=== PATIENT | female | born 1945 | race Caucasian/White ===

== ENCOUNTER 2017-12-29 16:33 | Inpatient (IN) | payer MEDICARE ==
[~2017-12-29] VITALS: Ht 170.2 cm; Wt 88.5 kg
--- NOTE | 2017-12-29 16:33 | NUR ---
SENT FROM URGENT CARE FOR ABNORMAL EKG. WEAKNESS X3 DAYS. VITAL SIGNS WNL A/OX4. WILL CONTINUE TO MONITOR FOR ANY CHANGES.
[2017-12-29] MEDS ORDERED: ASPIRIN 81 MG TAB.CHEW ONE (16:46)
--- NOTE | 2017-12-29 16:55 | NUR ---
NEW IV STARTED ON LAC, 20G. BLOOD DRAWN AND SENT TO LAB
[2017-12-29] MEDS ORDERED: ASPIRIN 81 MG TAB.CHEW PO ONE (17:00)
[2017-12-29 17:07] LABS: CALCIUM, SERUM 8.8 mg/dL (8.5-10.1); CARBON DIOXIDE 25 mmol/L (21-32); CHLORIDE 103 mmol/L (98-107); CREATININE 1.2 mg/dL (0.6-1.3); GLUCOSE 113 mg/dL (74-106); POTASSIUM 4.3 mmol/L (3.5-5.1); SODIUM SERUM 140 mmol/L (136-145); UREA NITROGEN, BLOOD 26 mg/dL (7-18)
[2017-12-29 17:11] LABS: BASOPHILS % (AUTO) 0.4 % (0.0-2.0); EOSINOPHILS % (AUTO) 0.6 % (0.0-6.0); HEMATOCRIT 26 % (33-45); HEMOGLOBIN 8.1 g/dL (11.5-14.8); LYMPHOCYTES # (AUTO) 1.3 /CMM (0.8-4.8); LYMPHOCYTES % (AUTO) 13.5 % (20.0-44.0); MEAN CORPUSCULAR HGB CONC 32 g/dl (31.0-36.0); MEAN CORPUSCULAR VOLUME 60 fL (82-100); MONOCYTES # (AUTO) 0.7 /CMM (0.1-1.30); MONOCYTES % (AUTO) 7.1 % (2.0-12.0); NEUTROPHILS # (AUTO) 7.6 /CMM (1.8-8.9); NEUTROPHILS % (AUTO) 78.4 % (43.0-81.0); PLATELET COUNT (AUTO) 419 /CMM (150-450); RDW COEFFICIENT OF VARIATION 18.4 (11.5-15.0); WHITE BLOOD COUNT (AUTO) 9.7 K/uL (4.3-11.0)
[2017-12-29 17:15] LABS: TROPONIN I < 0.017 ng/mL (0.00-0.056)
[2017-12-29 17:24] LABS: ALANINE AMINOTRANSFERASE 20 U/L (12-78); ALBUMIN 3.5 g/dL (3.4-5.0); ALKALINE PHOSPHATASE 81 U/L (46-116); ASPARTATE AMINOTRANSFERASE 16 U/L (15-37); B-TYPE NATRIURETIC PEPTIDE 226 PG/ML (0-125); BILIRUBIN,DIRECT 0.1 mg/dL (0.0-0.2); BILIRUBIN,TOTAL 0.4 mg/dL (0.2-1.0); TOTAL PROTEIN, SERUM 7.7 g/dL (6.4-8.2)
[2017-12-29 17:30] LABS: INR 0.95 (0.87-1.13)
[2017-12-29] MEDS ORDERED: SUMA25TA10 PO (17:59)
[2017-12-29] MEDS ORDERED: TRAM50TA2 PO (17:59)
[2017-12-29] MEDS ORDERED: MELO-105 PO (17:59)
[2017-12-29] MEDS ORDERED: GABA-532 PO (17:59)
--- NOTE | 2017-12-29 19:40 | NUR ---
REPORT GIVEN TO GENARO
--- NOTE | 2017-12-29 19:43 | NUR ---
SON: DENISSE YANG [phone]
[2017-12-29 20:00] VITALS: BP_SYST 121; BP_SYST 123; BP_SYST 149; BP_DIAS 73; BP_DIAS 81; BP_DIAS 87
--- NOTE | 2017-12-29 20:00 | NUR ---
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
[2017-12-29] MEDS ORDERED: ONDANSETRON HCL/PF 4 MG/2 ML VIAL IVP PRN (21:00)
[2017-12-29] MEDS ORDERED: Z GUARD REMEDY 2 OZ OINT TP PRN (21:00)
[2017-12-29] MEDS ORDERED: MORPHINE SULFATE INJ 4 MG/ML DISP.SYRIN IV PRN (21:00)
[2017-12-29] MEDS ORDERED: SUMATRIPTAN SUCCINATE 25 MG TABLET PO PRN (21:00)
[2017-12-29] MEDS ORDERED: ACETAMINOPHEN 325 MG TABLET PO PRN (21:00)
[2017-12-29] MEDS ORDERED: TRAMADOL HCL 50 MG TABLET PO PRN (21:00)
[2017-12-29] MEDS ORDERED: ENOXAPARIN SODIUM 40 MG/0.4 ML DISP.SYRIN SQ SCH (22:00)
--- NOTE | 2017-12-29 22:00 | NUR ---
OFFC SPEC NOTES STARTED ON LOVENOX 4OMG SQ ORDERED,GIVEN ON RLQ.
[2017-12-30] VITALS (14 sets, daily range): BP systolic 130–162; BP diastolic 53–75
[2017-12-30] MEDS: ZOLPIDEM TARTRATE 5 MG TABLET PO PRN ×2 (00:15→22:54)
--- NOTE | 2017-12-30 00:15 | NUR ---
MS RN NOTES C/O INSOMNIA,AMBIEN 5MG PO GIVEN NEW ORDER BY SEBAS TSANG,AND PER PATIENT REQUEST.
--- NOTE | 2017-12-30 00:16 | NUR ---
FIXED INTEREST DEALER NOTES PAIN MANAGEMENT C/O GENRALIZED PAIN 5.10 ON PAIN SCALE,ULTRAM 25MG PO GIVEN ORDERED.
--- NOTE | 2017-12-30 06:35 | NUR ---
INSTRUCTIONAL TECHNOLOGY SPECIALIST NOTES SR WITH BBB-79,ABLE TO SLEPT WELL WITH AMBIEN AND ULTRAM.IN NO ACUTE DISTRESS.WILL ENDORSE TO DAY NURSE FOR SANDI.
--- NOTE | 2017-12-30 07:10 | NUR ---
MANAGER UTILITY NOTES PATIENT IN BED EYES CLOSED, RESPOND TO VERBAL AND TACTILE STIMULI. NO ACUTE DISTRESS NOTED. BREATHING UNLABORED. NO SOB NOTED. DENIED ANY PAIN . IV ACCESS PATENT AND INTACT.SAFETY MEASURES IN PLACE. CALL LIGHT WITHIN REACH. WILL CONTINUE TO MONITOR ACCORDINGLY.
[2017-12-30 07:27] LABS: HEMATOCRIT 23 % (33-45); MEAN CORPUSCULAR HGB CONC 30 g/dl (31.0-36.0); MEAN CORPUSCULAR VOLUME 61 fL (82-100); PLATELET COUNT (AUTO) 323 /CMM (150-450); RDW COEFFICIENT OF VARIATION 19.9 (11.5-15.0); RED BLOOD CELL COUNT(AUTO) 3.83 MIL/uL (4.0-5.2); WHITE BLOOD COUNT (AUTO) 6.7 K/uL (4.3-11.0)
[2017-12-30] MEDS ORDERED: PANTOPRAZOLE 40 MG TABLET.DR PO SCH (07:30)
[2017-12-30 07:55] LABS: CHOLESTEROL 155 mg/dL (<200); HDL CHOLESTEROL 60 mg/dL (40-60); HEMOGLOBIN 6.9 g/dL (11.5-14.8); LDL 90 mg/dL (0-99); THYROID STIMULATING HORMONE 1.328 uIU/mL (0.358-3.74); TRIGLYCERIDES 52 mg/dL (30-150)
[2017-12-30 07:57] LABS: ALANINE AMINOTRANSFERASE 17 U/L (12-78); ALKALINE PHOSPHATASE 67 U/L (46-116); ASPARTATE AMINOTRANSFERASE 17 U/L (15-37); BILIRUBIN,TOTAL 0.4 mg/dL (0.2-1.0); CALCIUM, SERUM 8.3 mg/dL (8.5-10.1); CARBON DIOXIDE 24 mmol/L (21-32); CHLORIDE 107 mmol/L (98-107); CREATININE 0.7 mg/dL (0.6-1.3); GLUCOSE 90 mg/dL (74-106); MAGNESIUM 2.2 mg/dL (1.8-2.4); PHOSPHORUS 3.7 mg/dL (2.5-4.9); SODIUM SERUM 140 mmol/L (136-145); TOTAL PROTEIN, SERUM 6.5 g/dL (6.4-8.2); UREA NITROGEN, BLOOD 20 mg/dL (7-18)
[2017-12-30 07:59] LABS: IRON, SERUM 10 ug/dl (50-175); TOTAL IRON BINDING CAPACITY 423 ug/dl (250-450)
[2017-12-30 08:44] LABS: EOSINOPHILS % (MANUAL) 2 % (0-4); LYMPHOCYTES % (MANUAL) 34 % (16-48); MONOCYTES % (MANUAL) 8 % (0-11.0); NEUTROPHILS % (MANUAL) 56 (42-76)
[2017-12-30] MEDS ORDERED: MELOXICAM 7.5 MG TABLET PO SCH (09:00)
--- NOTE | 2017-12-30 09:00 | NUR ---
PROP SETTER NOTES SEEN AND EVALUATED BY DR CHAPARRITA STARK, AWARE OF CRITICAL H&H LEVEL.
--- NOTE | 2017-12-30 09:25 | NUR ---
RABBIT DRESSER NOTES SEEN AND EVALUATED BY DR TEIXEIRA WITH NEW ORDERS MADE. NOTED AND CARRIED OUT
[2017-12-30] MEDS: GABAPENTIN 100 MG CAPSULE PO SCH ×3 (09:54→17:33)
[2017-12-30] MEDS ORDERED: PEG 3350/NA SULF,BICARB,CL/KCL 4,000 ML BOTTLE PO ONE (13:00)
[2017-12-30] MEDS ORDERED: NA PHOS,M-B/NA PHOS,DI-BA 1 EA ENEMA RC PRN (13:00)
[2017-12-30] MEDS ORDERED: MAGNESIUM CITRATE 296 ML BOTTLE PO ONE (13:00)
[2017-12-30] MEDS ORDERED: diphenhydrAMINE HCL 50 MG/ML VIAL IV PRN ×2 (13:30)
--- NOTE | 2017-12-30 13:31 | NUR ---
CLIENT SERVICE MANAGER NOTES SEEN AND EVALUATED BY JAQUELINE RAZA WITH NEW ORDERS MADE. NOTED AND CARRIED OUT.
[2017-12-30] MEDS: PANTOPRAZOLE 40 MG VIAL IV SCH (13:57)
--- NOTE | 2017-12-30 14:14 | NUR ---
CHIEF TECHNICAL OFFICER NOTES STARTED BLOOD TRANSFUSION, PATIENT WITH STABLE VITAL SIGNS. NO ACUTE DISTRESS NOTED. WILL CONTINUE TO MONITOR ACCORDINGLY.
--- NOTE | 2017-12-30 14:29 | NUR ---
WATER FABRICATOR OPERATOR NOTES BLOOD TRANSFUSION ON GOING. PATIENT REMAINS WITH STABLE VITAL SIGNS. NO ADVERSE REACTION NOTED. NO ACUTE DISTRESS NOTED. WILL CONTINUE TO MONITOR ACCORDINGLY.
--- NOTE | 2017-12-30 17:20 | NUR ---
TOBACCO SORTER NOTES COMPLETED BLOOD TRANFUSION. PATIENT CONTINUED TO REMAIN IN STABLE CONDITION. NO SOB NOTED. NO ASE NOTED. PATIENT TOLERATED WELL. WILL CONTINUE TO MONITOR ACCORDINGLY.
[2017-12-30] MEDS: SOD FERRIC GLUC 125 MG in IV NS 0.9% 100 ML IV SCH (17:32)
--- NOTE | 2017-12-30 18:50 | NUR ---
MULTI NEEDLE MACHINE OPERATOR NOTES PATIENT IN BED WATCHING TV, ALERT ORIENTED X 4. NO ACUTE DISTRESS NOTED. BREATHING UNLABORED. NO SOB NOTED. DENIED ANY PAIN . NO BT ASE NOTED . IV ACCESS PATENT AND INTACT. DUE MEDICATIONS GIVEN, NO ASE NOTED. NEEDS ATTENDED AND ANTICIPATED. SAFETY MEASURES IN PLACE. CALL LIGHT WITHIN REACH. WILL CONTINUE TO MONITOR ACCORDINGLY. WILL ENDORSE TO NIGHT NURSE FOR CONTINUITY OF CARE.
--- NOTE | 2017-12-30 19:15 | NUR ---
MS RN NOTES: RECEIVED PT AND IS AWAKE. PT IS A/OX4. PT HAS IV ON LAC AND IS PATENT AND INTACT. PT STARTED GOLYTELY AND MAG CITRATE. CALL LIGHT WITHIN PT'S REACH. BED KEPT IN LOW, LOCKED POSITION, AND SIDE RAILS X 2UP. INFORMED PT THAT POST MIDNIGHT SHE IS NPO FOR PROCEDURE TOMORROW. PT AWARE AND UNDERSTOOD. WILL CONTINUE TO MONITOR PT.
--- NOTE | 2017-12-30 19:50 | NUR ---
MS WHITTAKER NOTES: COLLECTED STOOL SAMPLE AND PLACED IN REFRIGERATOR.
[2017-12-30 22:22] LABS: OCCULT BLOOD STOOL NEGATIVE (NEGATIVE)
--- NOTE | 2017-12-30 22:45 | NUR ---
MS RN NOTES: PT'S BOWEL MOVEMENTS ARE CLEAR, WATERY, YELLOW. NO MORE FORMED, SOFT STOOLS SHOWING. WILL CONTINUE TO MONITOR SHE GOES.
--- NOTE | 2017-12-30 22:55 | NUR ---
MS WHITTAKER NOTES: PT REQUESTED FOR SLEEPING AID. WILL CONTINUE TO MONITOR PT. Addendum: 12/30/17 at 2256 by JOSEPH EDGE RN PT WAS ADMINISTERED AMBIEN 5MG PO.
[2017-12-31] VITALS (7 sets, daily range): BP systolic 112–143; BP diastolic 47–73
--- NOTE | 2017-12-31 06:18 | NUR ---
MS WHITTAKER CLOSING NOTES: ALL NEEDS WERE ATTENDED AND ANTICIPATED FOR. ON ROOM AIR AND TOLERATING WELL. PT HAS BEEN NPO SINCE MIDNIGHT. PT HAS IV ON L AC #20G AND IS PATENT AND INTACT. CURRENTLY S/L. CALL LIGHT WITHIN PT'S REACH. BED KEPT IN LOW, LOCKED POSITION, AND SIDE RAILS X 2UP. WILL ENDORSE TO AM NURSE FOR SANDI. Addendum: 12/31/17 at 0716 by JOSEPH EDGE RN PT HAS BEEN CLEAR FOR THE PROCEDURE. NO PARTICLES IN HER BMS.
[2017-12-31 06:21] LABS: HEMATOCRIT 27 % (33-45); HEMOGLOBIN 8.3 g/dL (11.5-14.8); MEAN CORPUSCULAR HGB CONC 31 g/dl (31.0-36.0); MEAN CORPUSCULAR VOLUME 63 fL (82-100); PLATELET COUNT (AUTO) 306 /CMM (150-450); RDW COEFFICIENT OF VARIATION 22.4 (11.5-15.0); RED BLOOD CELL COUNT(AUTO) 4.24 MIL/uL (4.0-5.2); WHITE BLOOD COUNT (AUTO) 7.3 K/uL (4.3-11.0)
[2017-12-31 06:36] LABS: ALANINE AMINOTRANSFERASE 24 U/L (12-78); ALBUMIN 3.1 g/dL (3.4-5.0); ALKALINE PHOSPHATASE 69 U/L (46-116); ASPARTATE AMINOTRANSFERASE 18 U/L (15-37); BILIRUBIN,TOTAL 0.7 mg/dL (0.2-1.0); CALCIUM, SERUM 8.7 mg/dL (8.5-10.1); CARBON DIOXIDE 26 mmol/L (21-32); CHLORIDE 108 mmol/L (98-107); CREATININE 0.7 mg/dL (0.6-1.3); GLUCOSE 91 mg/dL (74-106); MAGNESIUM 2.3 mg/dL (1.8-2.4); PHOSPHORUS 3.8 mg/dL (2.5-4.9); POTASSIUM 4.1 mmol/L (3.5-5.1); SODIUM SERUM 141 mmol/L (136-145); TOTAL PROTEIN, SERUM 6.5 g/dL (6.4-8.2); UREA NITROGEN, BLOOD 15 mg/dL (7-18)
--- NOTE | 2017-12-31 07:14 | NUR ---
MS RN NOTES: PT PLACED HER 2 RINGS IN HER COPPER SMALL BAG SHE IS TO GO FOR PROCEDURE TODAY.
--- NOTE | 2017-12-31 07:18 | NUR ---
MS RN NOTES: PT WENT DOWN TO OR FOR PROCEDURE.
--- NOTE | 2017-12-31 09:30 | NUR ---
m/s fast food restaurant manager: notes received pt from recovery room with dx: s/p egd and colonoscopy. orders received and carried out and noted. vss. pt awake, a/ox4. c/o itchiness to right arm, offered benadryl, but pt refused, stated, "i need my neurontin, i need a double dose." informed her that she has 100mg po tid ordered and md will have to review her meds. ezra (corn cooker student of dr. simon) here and made aware. instructed to call for assistance. will continue to monitor.
[2017-12-31 09:31] LABS: LYMPHOCYTES % (MANUAL) 14 % (16-48); MONOCYTES % (MANUAL) 3 % (0-11.0); NEUTROPHILS % (MANUAL) 83 (42-76)
[2017-12-31] MEDS: GABAPENTIN 100 MG CAPSULE PO SCH (09:37)
--- NOTE | 2017-12-31 09:37 | NUR ---
m/s ethics officer: notes medicated with neurontin 100mg po as ordered. instructed to call for assistance. breakfast ordered. call light within reach. will continue to monitor.
--- NOTE | 2017-12-31 09:55 | NUR ---
m/s supply tech: notes avni (rn) heard a loud noise. upon arrival, pt was found on a sitting position next to her bed and drawer. rom performed and wnl. denies hitting head. noted with a minor scrape/scratch on her mid/upper back. denies any pain, but still c/o of itchiness. still refuses benadryl when offered. no rash noted. asked pt what happened, stated, "i got up to change my clothes because i was itching, i was trying to put my pants and i slipped." pt didn't not call for help because it's hard to give up her independence as stated. assisted back to chair and back to bed. ezra (assigner student) at bedside and aware. cn aware. vss. instructed to call for assistance. will continue to monitor.
--- NOTE | 2017-12-31 13:00 | NUR ---
m/s data entry supervisor: md visit seen and examined by dr. simon at this time. daughter in law visiting. md updated plan of care. for d'c planning tomorrow.
--- NOTE | 2017-12-31 14:00 | NUR ---
m/s graphic art sales representative: notes pt tolerated lunch. no c/o n/v/d at this time. instructed to call for assistance. will continue to monitor.
[2017-12-31] MEDS: PANTOPRAZOLE 40 MG VIAL IV SCH (14:11)
[2017-12-31] MEDS: SOD FERRIC GLUC 125 MG in IV NS 0.9% 100 ML IV SCH (14:11)
--- NOTE | 2017-12-31 16:00 | NUR ---
m/s bar steward: notes resting comfortable in bed. no distress noted. instructed to call for assistance. will continue to monitor.
[2017-12-31] MEDS: GABAPENTIN 300 MG CAPSULE PO SCH (16:40)
--- NOTE | 2017-12-31 17:30 | NUR ---
m/s griddle cook: notes dinner served. hob elevated. needs attended. instructed to call for assistance. will continue to monitor.
--- NOTE | 2017-12-31 18:30 | NUR ---
m/s correction officer head: notes up and about in room. family visiting. s/p fall. no acute distress noted. needs attended. instructed to call for assistance. will continue to monitor.
--- NOTE | 2017-12-31 19:00 | NUR ---
m/s education manager: notes report given to hannah (kitty) for continuity of care.
--- NOTE | 2017-12-31 19:50 | NUR ---
MS RN NOTE: PATIENT RESTING IN BED, NO ACUTE DISTRESS NOTED, FAMILY AT BEDSIDE. BREATHING EVEN AND UNLABORED, NO SOB NOTED. IV TO LAC IN PLACE. BED LOCKED AND IN LOWEST POSITION, CALL LIGHT IN REACH. WILL CONTINUE TO MONITOR.
--- NOTE | 2018-01-01 03:30 | NUR ---
MS RN NOTE: PATIENT SLEEPING IN BED, NO ACUTE DISTRESS NOTED. BED LOCKED AND IN LOWEST POSITION, CALL LIGHT IN REACH, WILL CONTINUE TO MONITOR.
--- NOTE | 2018-01-01 06:40 | NUR ---
MS RN NOTE: PATIENT RESTING IN BED, NO ACUTE DISTRESS NOTED. BREATHING EVEN AND UNLABORED, NO SOB NOTED. IV TO LAC IN PLACE. BED LOCKED AND IN LOWEST POSITION, CALL LIGHT IN REACH. WILL ENDORSE TO DAY NURSE TO CONTINUE WITH PLAN OF CARE.
[2018-01-01 07:24] LABS: CALCIUM, SERUM 8.4 mg/dL (8.5-10.1); CARBON DIOXIDE 27 mmol/L (21-32); CHLORIDE 108 mmol/L (98-107); CREATININE 0.7 mg/dL (0.6-1.3); GLUCOSE 91 mg/dL (74-106); MAGNESIUM 2.3 mg/dL (1.8-2.4); PHOSPHORUS 3.7 mg/dL (2.5-4.9); SODIUM SERUM 142 mmol/L (136-145); UREA NITROGEN, BLOOD 12 mg/dL (7-18)
[2018-01-01 07:48] LABS: BASOPHILS % (AUTO) 0.3 % (0.0-2.0); EOSINOPHILS % (AUTO) 2.9 % (0.0-6.0); HEMATOCRIT 26 % (33-45); HEMOGLOBIN 7.9 g/dL (11.5-14.8); LYMPHOCYTES # (AUTO) 1.9 /CMM (0.8-4.8); MEAN CORPUSCULAR HGB CONC 30 g/dl (31.0-36.0); MEAN CORPUSCULAR VOLUME 64 fL (82-100); MONOCYTES # (AUTO) 0.7 /CMM (0.1-1.30); MONOCYTES % (AUTO) 9.9 % (2.0-12.0); NEUTROPHILS # (AUTO) 4.1 /CMM (1.8-8.9); NEUTROPHILS % (AUTO) 58.9 % (43.0-81.0); PLATELET COUNT (AUTO) 309 /CMM (150-450); RDW COEFFICIENT OF VARIATION 23.2 (11.5-15.0)
[2018-01-01 08:00] VITALS: BP 128/68
--- NOTE | 2018-01-01 08:00 | NUR ---
m/s church business administrator: initial assessment received pt in bed awake, a/ox4. ambulatory. no c/o abdominal pain, nausea, vomiting, or any discomfort. instructed to call for assistance. will continue to monitor.
[2018-01-01 08:08] LABS: IMMUNOGLOBULIN A, SERUM 343 mg/dL (64-422); IMMUNOGLOBULIN G, SERUM 823 mg/dL (700-1600); IMMUNOGLOBULIN M, SERUM 112 mg/dL (26-217)
[2018-01-01] MEDS: GABAPENTIN 300 MG CAPSULE PO SCH (08:40)
--- NOTE | 2018-01-01 09:15 | NUR ---
m/s shipper: cardio f/u seen by dr. flannery at this time.
--- NOTE | 2018-01-01 10:00 | NUR ---
m/s sizer hand: md visit pt wants to go today. liborio (neena) made aware. seen and examined by liborio (neena) at this time. no new orders at this time.
--- NOTE | 2018-01-01 10:42 | NUR ---
m/s sprinkler tender: p.t. eval up with p.t. at this time, tol. paredes.
[2018-01-01 11:08] LABS: EOSINOPHILS % (MANUAL) 3 % (0-4); LYMPHOCYTES % (MANUAL) 24 % (16-48); MONOCYTES % (MANUAL) 9 % (0-11.0); NEUTROPHILS % (MANUAL) 64 (42-76)
[2018-01-01 12:11] LABS: *SPE A/G RATIO 1.2 (0.7-1.7); *SPE ALBUMIN 3.3 g/dL (2.9-4.4); *SPE ALPHA-1-GLOBULIN 0.2 g/dL (0.0-0.4); *SPE ALPHA-2-GLOBULIN 0.6 g/dL (0.4-1.0); *SPE BETA GLOBULIN 1.1 g/dL (0.7-1.3); *SPE GLOBULIN, TOTAL 2.8 g/dL (2.2-3.9); *SPE M-SPIKE Not Observed g/dL (Not Observed); *SPEGAMMA GLOBULIN 0.8 g/dL (0.4-1.8)
[2018-01-01] MEDS: PANTOPRAZOLE 40 MG VIAL IV SCH (13:00)
--- NOTE | 2018-01-01 13:00 | NUR ---
m/s retort furnace operator: notes son here and spoke to liborio (electrical laboratory technician) and updated plan of care. awaiting for gi and then pt will be discharge home today.
[2018-01-01] MEDS: SOD FERRIC GLUC 125 MG in IV NS 0.9% 100 ML IV SCH (14:00)
--- NOTE | 2018-01-01 15:30 | NUR ---
m/s smooth plater: gi f/u seen and examined by devin (education administrative assistant) at this time and spoke to pt and son. pt is stable for discharge today per education administrative assistant. liborio (neena) notified and made aware.
--- NOTE | 2018-01-01 16:00 | NUR ---
m/s client architect: notes received order from liborio (inpatient services rn) to discharge pt home with prescription. order acknowledged. h/l removed with tip intact.
--- NOTE | 2018-01-01 16:15 | NUR ---
m/s program manager slp: d'c instructions discharged instructions with prescription given to pt and son. pt and son verbalized understanding and will Follow up with PCP within 1 week, Follow up with Dr. Dar Ford in [place], Follow up with GI within 1 week, Follow up with hematology/oncology within 1 week Continue home medications, Continue iron supplement, Given prescription for Carafate; take as directed, Encourage increase of high fiber nutritional intake and hydration, and Avoid NSAIDs.
--- NOTE | 2018-01-01 16:30 | NUR ---
m/s political aide: discharged discharged home in stable condition with all valuables and d'c papers via own private car.
[2018-01-01] MEDS ORDERED: SUCRALFATE 1 G TABLET PO SCH (17:30)
[2018-01-02 13:13] LABS: *HGBFR CHEMOGLOBIN SOLUBILITY Negative (Negative); *HGBFRC HEMOGLOBIN A 98.3 % (96.4-98.8); *HGBFRC HEMOGLOBIN A2 1.7 % (1.8-3.2)
== END 2018-01-01 16:36 | disposition home or self-care (01) | DRG 205 ==
LOC: ER 16:39 → TELE 19:41 → MED 12-30 09:51
PROVIDERS: ADMIT Nurse Practitioner Acute Care; ATTEND Nurse Practitioner Acute Care
PROC: 30233N1 Transfusion of Nonautologous Red Blood Cells into Peripheral Vein, Percutaneous Approach (ICD-10-PCS; principal; 2017-12-30)
PROC: 0DBP8ZZ Excision of Rectum, Via Natural or Artificial Opening Endoscopic (ICD-10-PCS; 2017-12-31)
PROC: 0DB68ZX Excision of Stomach, Via Natural or Artificial Opening Endoscopic, Diagnostic (ICD-10-PCS; 2017-12-31 08:22)
DX: M94.0 Chondrocostal junction syndrome [Tietze] (principal); N17.0 Acute kidney failure with tubular necrosis; E46 Unspecified protein-calorie malnutrition; D50.9 Iron deficiency anemia, unspecified; M79.2 Neuralgia and neuritis, unspecified; Z91.013 Allergy to seafood; Z79.899 Other long term (current) drug therapy; M40.209 Unspecified kyphosis, site unspecified; G43.909 Migraine, unspecified, not intractable, without status migrainosus; G89.29 Other chronic pain; I25.10 Atherosclerotic heart disease of native coronary artery without angina pectoris; I25.2 Old myocardial infarction; I44.7 Left bundle-branch block, unspecified; M19.90 Unspecified osteoarthritis, unspecified site; K25.9 Gastric ulcer, unspecified as acute or chronic, without hemorrhage or perforation; K57.30 Diverticulosis of large intestine without perforation or abscess without bleeding; K44.9 Diaphragmatic hernia without obstruction or gangrene; K62.1 Rectal polyp; K64.8 Other hemorrhoids
CPT/HCPCS: 36415; 71045-TC; 72110-TC; 80048-TC; 80053-TC; 80061-TC; 80076-TC; 82272-TC; 82728-TC; 82784; 83021; 83540-TC; 83735-TC; 83880; 84100-TC; 84155; 84165; 84443-TC; 84484-TC; 85025-TC; 85045-TC; 85660; 85730-TC; 86334; 86850-TC; 86921-TC; 87081-TC; 88305-TC; 88313-TC; 88342; 93307-TC; A4606; C9113; J1650; J2405; J2704; J2916; J3490; J7030; J7050; P9016-BL; Z7610